=== PATIENT | male | born 1970 | race African-American/Black ===

== ENCOUNTER 2017-08-01 06:40 | Emergency (ER) | payer SELFPAY ==
[~2017-08-01] VITALS: Ht 182.9 cm; Wt 156.4 kg
[2017-08-01] MEDS ORDERED: SODIUM CHLORIDE 0.9% 1,000 ML IV ONE (08:15)
[2017-08-01] MEDS ORDERED: ONDANSETRON HCL 4MG/2ML VIAL IV ONE (08:15)
[2017-08-01] MEDS ORDERED: MORPHINE SULFATE 4 MG/ML CPJ (NOT FOR IM USE) IV ONE (08:15)
[2017-08-01 08:47] LABS: CLARITY URINE CLEAR (CLEAR); COLOR URINE YELLOW (YELLOW); GLUCOSE URINE 3+ (NEGATIVE); KETONES URINE 3+ (NEGATIVE); LEUKOCYTE ESTERASE URINE NEGATIVE (NEGATIVE); NITRITE URINE NEGATIVE (NEGATIVE); OCCULT BLOOD URINE NEGATIVE (NEGATIVE); PROTEIN URINE NEGATIVE (NEGATIVE); UROBILINOGEN URINE 0.2 E.U./dL (0.2-1.0)
[2017-08-01 10:46] VITALS: BP 154/86
== END 2017-08-01 10:50 | disposition home or self-care (01) ==
LOC: ER 07:17
DX: N49.2 Inflammatory disorders of scrotum (principal); I10 Essential (primary) hypertension; F12.10 Cannabis abuse, uncomplicated
CPT/HCPCS: 76870; 81001; 93976; 96361; 96374; 96375; 99285; J2270; J2405; J7030; Z7610

== ENCOUNTER 2018-08-18 07:25 | Emergency (ER) | payer BC ==
[~2018-08-18] VITALS: Ht 182.9 cm; Wt 145.0 kg
[~2018-08-18 07:25] MED LIST: AMLO10TA80 MT; BENA1TAB19 MT; METF-815 MT
[2018-08-18] MEDS ORDERED: IBUPROFEN 600MG TABLET PO ONE (09:15)
[2018-08-18 12:00] LABS: BASOPHILS % 0.6 % (0.0-2.0); EOSINOPHILS % 1.2 % (0.0-5.0); HEMATOCRIT. 40.1 % (42.0-52.0); HEMOGLOBIN. 13.3 g/dL (14.0-18.0); LYMPHOCYTES % 19.7 % (20.0-50.0); MEAN CORPUSCULAR HEMOGLOBIN 29.2 pg (28.0-32.0); MEAN CORPUSCULAR VOLUME 88.4 fL (80.0-94.0); MEAN PLATELET VOLUME 7.7 fl (7.4-10.4); MONOCYTES % 6.3 % (2.0-8.0); NEUTROPHILS % 72.2 % (40.0-76.0); PLATELET 322 x1000/uL (130-400); RED BLOOD CELL COUNT 4.54 mill/uL (4.7-6.1)
[2018-08-18 12:48] VITALS: BP 155/90
== END 2018-08-18 13:19 | disposition home or self-care (01) ==
LOC: ER 07:25
DX: M25.571 Pain in right ankle and joints of right foot (principal); E11.9 Type 2 diabetes mellitus without complications; I10 Essential (primary) hypertension; F12.10 Cannabis abuse, uncomplicated; Z79.899 Other long term (current) drug therapy
CPT/HCPCS: 36415; 93971; 99285

== ENCOUNTER 2024-07-12 12:40 | Inpatient (IN) | payer BC ==
[~2024-07-12] VITALS: Ht 182.9 cm; Wt 151.0 kg
[~2024-07-12 12:40] MED LIST changes: -METF-815 MT; +METF-873 MT
[2024-07-12] MEDS: MORPHINE SULFATE 4 MG/ML INJ (FOR IV/IM USE) IV STA ×2 (13:12→14:42)
[2024-07-12] MEDS: SODIUM CHLORIDE 0.9% 1,000 ML IV ONE (13:12)
[2024-07-12] MEDS: ONDANSETRON HCL 4MG/2ML INJ IV STA ×3 (13:12→21:26)
[2024-07-12 13:14] LABS: BASOPHILS % 0.5 % (0.0-2.0); EOSINOPHILS % 0.6 % (0.0-5.0); HEMATOCRIT. 46.4 % (42.0-52.0); HEMOGLOBIN. 15.4 g/dL (14.0-18.0); LYMPHOCYTES % 15.8 % (20.0-50.0); MEAN CORPUSCULAR HEMOGLOBIN 30.3 pg (28.0-32.0); MEAN CORPUSCULAR HGB CONC 33.2 g/dL (31.0-37.0); MEAN CORPUSCULAR VOLUME 91.3 fL (80.0-94.0); MEAN PLATELET VOLUME 8.6 fl (7.4-10.4); MONOCYTES % 3.9 % (2.0-8.0); NEUTROPHILS % 79.2 % (40.0-76.0); PLATELET 220 x1000/uL (130-400); RED BLOOD CELL COUNT 5.08 mill/uL (4.7-6.1); RED CELL DISTRIBUTION WIDTH 13.3 % (11.6-14.6); WHITE BLOOD COUNT 15.5 x1000/uL (4.5-11.0)
[2024-07-12 13:22] LABS: CHLORIDE 103 mEq/L (98-107); POTASSIUM 3.7 mEq/L (3.5-5.1); SODIUM 140 mEq/L (136-145)
[2024-07-12 13:23] LABS: CALCIUM 9.4 mg/dL (8.7-10.4); CARBON DIOXIDE 29 mEq/L (21-32)
[2024-07-12 13:28] LABS: CREATININE 1.1 mg/dL (0.6-1.3); GLUCOSE 215 mg/dL (70-105); UREA NITROGEN BLOOD 11 mg/dL (9-23)
[2024-07-12 13:30] LABS: ALANINE AMINOTRANSFERASE 36 IU/L (10-49); ALBUMIN 4.9 g/dL (3.2-4.8); ASPARTATE AMINOTRANSFERASE 25 IU/L (<34); BILIRUBIN DIRECT 0.2 mg/dL (<=3.0); BILIRUBIN TOTAL 0.6 mg/dL (0.1-1.0); PROTEIN TOTAL 8.3 g/dL (6.0-8.3)
[2024-07-12 14:02] LABS: CLARITY URINE CLEAR (CLEAR); COLOR URINE YELLOW (YELLOW); GLUCOSE URINE 3+ (NEGATIVE); KETONES URINE 2+ (NEGATIVE); LEUKOCYTE ESTERASE URINE NEGATIVE (NEGATIVE); NITRITE URINE NEGATIVE (NEGATIVE); OCCULT BLOOD URINE NEGATIVE (NEGATIVE); PH URINE 8.5 (4.5-8.0); PROTEIN URINE NEGATIVE (NEGATIVE); SPECIFIC GRAVITY URINE 1.025 (1.005-1.030)
[2024-07-12 14:18] LABS: BACTERIA URINE NONE SEEN; RBC URINE NONE SEEN /hpf (0-2); SQUAMOUS EPITHELIAL CELL URINE NONE SEEN /lpf (RARE/1+); WBC URINE 0-2 /hpf (0-2); YEAST URINE NONE SEEN
[2024-07-12 15:41] LABS: INR 0.9; PROTHROMBIN TIME 10.5 sec (9.6-11.0)
[2024-07-12] MEDS ORDERED: NICARDIPINE 50 MG in SODIUM CHLORIDE 0.9% 230 ML IV PRN (16:15)
[2024-07-12] MEDS ORDERED: MORPHINE SULFATE 4 MG/ML INJ (FOR IV/IM USE) IV STA (16:25)
[2024-07-12] MEDS ORDERED: IPRATROPIUM/ALBUTEROL 0.5-3(2.5)MG/3ML NEB HHN PRN (16:45)
[2024-07-12] MEDS ORDERED: ONDANSETRON HCL 4MG/2ML INJ IV PRN (16:45)
[2024-07-12] MEDS ORDERED: DEXTROSE 50% WATER 50ML SYRINGE IV PRN (17:00)
[2024-07-12] MEDS: NICARDIPINE 40MG/200ML PREMIX 200 ML IV PRN (17:30)
[2024-07-12] MEDS: HYDROMORPHONE HCL/PF 1MG/ML INJ IV NR (17:35)
[2024-07-12] MEDS: PANTOPRAZOLE SODIUM 40 MG/VIAL IV SCH (17:39)
[2024-07-12] MEDS: BLOOD SUGAR DIAGNOSTIC STRIP TEST SCH (17:44)
[2024-07-12] MEDS: INSULIN LISPRO 100 UNITS/ML SUBCUT SCH (18:20)
[2024-07-12 18:55] LABS: PHOSPHORUS 2.6 mg/dL (2.5-4.9)
[2024-07-12] MEDS: MORPHINE SULFATE 4 MG/ML INJ (FOR IV/IM USE) IV NR (21:26)
[2024-07-12] MEDS: NIFEDIPINE XL 60MG TAB PO SCH (23:48)
[2024-07-13 01:01] LABS: CHLORIDE 102 mEq/L (98-107); POTASSIUM 3.3 mEq/L (3.5-5.1); SODIUM 139 mEq/L (136-145)
[2024-07-13 01:02] LABS: CARBON DIOXIDE 26 mEq/L (21-32)
[2024-07-13 01:03] LABS: CALCIUM 9.7 mg/dL (8.7-10.4)
[2024-07-13 01:07] LABS: CREATININE 1.2 mg/dL (0.6-1.3); GLUCOSE 241 mg/dL (70-105); UREA NITROGEN BLOOD 14 mg/dL (9-23)
[2024-07-13 01:08] LABS: CREATINE KINASE MB FRACTION 3.4 ng/mL (0.5-3.6); TROPONIN I HIGH SENSITIVITY 27 ng/L (3.0-53)
[2024-07-13 01:09] LABS: CREATINE KINASE 122 IU/L (46-171)
[2024-07-13] MEDS: MORPHINE SULFATE 2 MG/ML INJ (NOT FOR IM USE) IV PRN (03:54)
[2024-07-13] MEDS: DEXT 5%/LACTATED RINGERS 1,000 ML IV SCH (04:00)
[2024-07-13 04:59] LABS: *AMPHETAMINES SCREEN URINE NEGATIVE (NEGATIVE); *BARBITURATES SCREEN URINE NEGATIVE (NEGATIVE); *BENZODIAZEPINES SCREEN URINE NEGATIVE (NEGATIVE); *COCAINE SCREEN URINE NEGATIVE (NEGATIVE); METHADONE URINE SCREEN NEGATIVE (NEGATIVE)
[2024-07-13 05:00] LABS: CANNABINOID URINE SCREEN PRESUMPTIVE POSITIVE (NEGATIVE); ECSTASY MDMA SCREEN URINE NEGATIVE (NEGATIVE); OPIATES URINE SCREEN PRESUMPTIVE POSITIVE (NEGATIVE); PHENCYCLIDINE URINE SCREEN NEGATIVE (NEGATIVE)
[2024-07-13] MEDS ORDERED: NICARDIPINE 40MG/200ML PREMIX 200 ML IV PRN (05:00)
[2024-07-13] MEDS: POTASSIUM CHLORIDE 20MEQ TABLET SR PO NR (05:53)
[2024-07-13 08:10] LABS: BASOPHILS % 0.3 % (0.0-2.0); EOSINOPHILS % 0.1 % (0.0-5.0); HEMATOCRIT. 43.3 % (42.0-52.0); HEMOGLOBIN. 14.4 g/dL (14.0-18.0); MEAN CORPUSCULAR HEMOGLOBIN 30.6 pg (28.0-32.0); MEAN CORPUSCULAR HGB CONC 33.2 g/dL (31.0-37.0); MEAN CORPUSCULAR VOLUME 92.1 fL (80.0-94.0); MEAN PLATELET VOLUME 8.4 fl (7.4-10.4); NEUTROPHILS % 82.6 % (40.0-76.0); PLATELET 221 x1000/uL (130-400); RED CELL DISTRIBUTION WIDTH 13.7 % (11.6-14.6); WHITE BLOOD COUNT 18.3 x1000/uL (4.5-11.0)
[2024-07-13 08:19] LABS: CARBON DIOXIDE 26 mEq/L (21-32); CHLORIDE 104 mEq/L (98-107); POTASSIUM 3.3 mEq/L (3.5-5.1); SODIUM 139 mEq/L (136-145)
[2024-07-13 08:20] LABS: CALCIUM 9.6 mg/dL (8.7-10.4)
[2024-07-13 08:24] LABS: GLUCOSE 176 mg/dL (70-105)
[2024-07-13 08:25] LABS: CREATINE KINASE MB FRACTION 4.4 ng/mL (0.5-3.6); LDL CHOLESTEROL 68 mg/dL (5-100); TRIGLYCERIDE 75 mg/dL (0-150); UREA NITROGEN BLOOD 11 mg/dL (9-23)
[2024-07-13 08:27] LABS: CHOLESTEROL 128 mg/dL (<200); HDL CHOLESTEROL 45 mg/dL (>55)
[2024-07-13 08:29] LABS: T4 FREE 1.19 ng/dL (0.89-1.76); THYROID STIMULATING HORMONE 1.17 uIU/mL (0.55-4.78)
[2024-07-13] MEDS ORDERED: NIFEDIPINE XL 60MG TAB PO SCH (09:00)
[2024-07-13] MEDS ORDERED: LOSARTAN 25 MG TABLET PO SCH (09:45)
[2024-07-13] MEDS: LOSARTAN 50 MG TABLET PO SCH (13:31)
[2024-07-13] MEDS: PANTOPRAZOLE SODIUM 40 MG/VIAL IV SCH (13:31)
[2024-07-13] MEDS ORDERED: HYDRALAZINE 20MG/ML VIAL IV PRN (16:45)
[2024-07-13] MEDS ORDERED: NALOXONE HCL 0.4MG/ML VIAL IV PRN (17:00)
[2024-07-13] MEDS: POTASSIUM CHLORIDE 20MEQ/PACKET PO NR (17:00)
[2024-07-13] MEDS: MAGNESIUM 1G PREMIX 100ML IV NR (17:00)
[2024-07-13] MEDS ORDERED: MAGNESIUM 2 G PREMIX 50 ML IV NR (17:00)
[2024-07-13] MEDS: SPIRONOLACTONE 50MG TABLET PO SCH (18:00)
[2024-07-13] MEDS: PRAZOSIN HCL 1MG CAPSULE PO SCH (21:08)
[2024-07-13] MEDS ORDERED: NICARDIPINE 50 MG in SODIUM CHLORIDE 0.9% 250 ML IV PRN (22:00)
[2024-07-13 22:25] VITALS: BP 159/87; PULSE 96; RESP 16; TEMP 37.11408; O2SAT 98
[2024-07-13 22:47] VITALS: BP 159/87; PULSE 92; RESP 19; TEMP 37.1408
[2024-07-13] MEDS ORDERED: PNEUMOCOCCAL 20-VAL CONJ-DIP CRM 0.5ML IM ONE (23:00)
[2024-07-14] VITALS (8 sets, daily range): BP systolic 134–162; BP diastolic 77–93; PULSE 83–104; RESP 13–21; TEMP 36.44736–37.2252; O2SAT 92–98
[2024-07-14 07:00] LABS: CARBON DIOXIDE 27 mEq/L (21-32); CHLORIDE 104 mEq/L (98-107); POTASSIUM 3.3 mEq/L (3.5-5.1); SODIUM 138 mEq/L (136-145)
[2024-07-14 07:01] LABS: CALCIUM 9.2 mg/dL (8.7-10.4)
[2024-07-14 07:04] LABS: CREATININE 0.9 mg/dL (0.6-1.3)
[2024-07-14 07:06] LABS: GLUCOSE 167 mg/dL (70-105); UREA NITROGEN BLOOD 12 mg/dL (9-23)
[2024-07-14 07:43] LABS: BASOPHILS % 0.2 % (0.0-2.0); EOSINOPHILS % 0.2 % (0.0-5.0); HEMATOCRIT. 42.1 % (42.0-52.0); HEMOGLOBIN. 13.8 g/dL (14.0-18.0); LYMPHOCYTES % 12.4 % (20.0-50.0); MEAN CORPUSCULAR HEMOGLOBIN 29.8 pg (28.0-32.0); MEAN CORPUSCULAR HGB CONC 32.7 g/dL (31.0-37.0); MEAN CORPUSCULAR VOLUME 91.1 fL (80.0-94.0); MEAN PLATELET VOLUME 9.2 fl (7.4-10.4); MONOCYTES % 11.3 % (2.0-8.0); NEUTROPHILS % 75.9 % (40.0-76.0); PLATELET 179 x1000/uL (130-400); RED BLOOD CELL COUNT 4.63 mill/uL (4.7-6.1); RED CELL DISTRIBUTION WIDTH 13.5 % (11.6-14.6); WHITE BLOOD COUNT 14.6 x1000/uL (4.5-11.0)
[2024-07-14] MEDS ORDERED: PNEUMOC 13-VAL CONJ-DIP CRM/PF 0.5 ML DISP.SYRIN IM ONE (09:00)
[2024-07-14] MEDS ORDERED: SPIRONOLACTONE 50MG TABLET PO SCH (09:00)
[2024-07-14] MEDS ORDERED: LOSA50TA41 MT (09:41)
[2024-07-14] MEDS ORDERED: SPIR100T5 MT (09:41)
[2024-07-14] MEDS: LOSARTAN 50 MG TABLET PO SCH (10:41)
[2024-07-14] MEDS: SPIRONOLACTONE 50MG TABLET PO SCH (10:49)
[2024-07-16 09:07] LABS: ACTH PLASMA 15 pg/mL (7.2-63.3)
== END 2024-07-14 13:28 | disposition home or self-care (01) | DRG 551 ==
LOC: ER 12:40 → EDBEDREQ 15:33 → EDBEDREQTM 15:57 → EDBEDREQSVC 16:21 → EDBEDREQTM 07-13 04:34 → EDBEDREQSVC 07-13 04:34 → 5EST 07-13 22:50
PROVIDERS: ADMIT Internal Medicine; ATTEND Internal Medicine
DX: M47.816 Spondylosis without myelopathy or radiculopathy, lumbar region (principal); K68.3 Retroperitoneal hematoma; E87.3 Alkalosis; Z68.42 Body mass index [BMI] 45.0-49.9, adult; I16.0 Hypertensive urgency; E78.5 Hyperlipidemia, unspecified; R79.89 Other specified abnormal findings of blood chemistry; E11.9 Type 2 diabetes mellitus without complications; Z20.822 Contact with and (suspected) exposure to COVID-19; D72.829 Elevated white blood cell count, unspecified; F17.210 Nicotine dependence, cigarettes, uncomplicated; I11.9 Hypertensive heart disease without heart failure; E87.6 Hypokalemia; E66.01 Morbid (severe) obesity due to excess calories; Z80.8 Family history of malignant neoplasm of other organs or systems; Z82.49 Family history of ischemic heart disease and other diseases of the circulatory system; Z79.84 Long term (current) use of oral hypoglycemic drugs
CPT/HCPCS: 36415; 71045; 72110; 74176; 80048; 80061; 80076; 80305; 81003; 82024; 82088; 82533; 82550; 82553; 82962; 83036; 83735; 83835; 83880; 84100; 84145; 84244; 84439; 84443; 84484; 85025; 85651; 87426; 93005; 99291; J0360; J1170; J1815; J2270; J2405; J2470; J7030